=== PATIENT | male | born 1990 | race Caucasian/White ===

== ENCOUNTER 2018-03-28 21:12 | Emergency (ER) | payer OTHER ==
--- NOTE | 2018-03-28 21:35 | ED.PDOC ---
History of Present Illness - General Chief Complaint: Lower Extremity Injury Stated Complaint: bite to ankle Time Seen by Provider: 03/28/18 21:28 Source: patient - History of Present Illness Initial Comments: HE WAS IN [facility] IN SHALLOW SNOW AND FELT A BITE ON THE LEFT LATERAL ANKLE AREA. THIS WAS ABOUT 1:30 HOURS AGO. EN ROUTE HE HAD PROBLEMS GETTING HERE AND THEN ONE TIRE HAD A BLOW OUT. WHEN HE ARRIVES HE HAS LIKE AN ABRASION TO THE LEFT LATERAL ANKLE AREA, THERE IS MILD PAIN AND NO SWELLING. Occurred: other - 1HOUR AND THIRTHY MINUTES AGO. Pain - Lower Extremity: mild: Left Ankle Method of Injury: unknown Improving Factors: nothing Worsening Factors: nothing Allergies/Adverse Reactions: Allergies NO KNOWN ALLERGY Allergy (Verified 03/28/18 21:32) Home Medications: Ambulatory Orders NK [NK] 03/28/18 Review of Systems - Review of Systems Constitutional: States: no symptoms reported EENTM: States: no symptoms reported Respiratory: States: no symptoms reported Cardiology: States: no symptoms reported Gastrointestinal/Abdominal: States: no symptoms reported Genitourinary: States: no symptoms reported Musculoskeletal: States: joint pain Skin: States: other - ABRASION TO LATERAL LEFT ANKLE AREA Neurological: States: no symptoms reported Endocrine: States: no symptoms reported Hematologic/Lymphatic: States: no symptoms reported Past Medical History (General) - Patient Medical History Hx Seizures: No Hx Stroke: No Hx Dementia: No - Vaccination History Hx Tetanus, Diphtheria Vaccination: Yes Immunizations Up to Date: Yes - Social History Hx Alcohol Use: No Family Medical History - Family History Father Family History: Unknown Physical Exam - Physical Exam General Appearance: Alert, Well Developed, Well Hydrated, Well Nourished Eyes, Ears, Nose, Throat: PERRL/EOMI, normal ENT inspection Neck: non-tender, full range of motion Cardiovascular/Respiratory: regular rate, rhythm, normal peripheral pulses, no JVD, normal breath sounds, no respiratory distress Gastrointestinal/Abdominal: non-tender Back: normal inspection Thigh/Hip: normal inspection Leg: normal inspection Knee: normal inspection Ankle: other - SMALL ABRASION TO THE LEFT LATERAL ANKLE Progress - Results/Orders Results/Orders: REASSESSED: NO EDEMA, MINIMAL PAIN, NO ECCHYMOSIS AND THE LAB IS ALL UNREMARKABLE. WILL DC HOME. Departure - Departure Clinical Impression: Abrasion foot/toe Time of Disposition: 22:38 Disposition: Discharge to Home or Self Care Condition: Excellent Departure Forms: ED Discharge - Pt. Copy, Patient Portal Self Enrollment Instructions: DI for Leg Pain Home Medications: Ambulatory Orders NK [NK] 03/28/18
[2018-03-28 22:30] VITALS: BP 129/66; TEMP 98.2; O2SAT 99
== END 2018-03-28 22:46 | disposition home or self-care (01) ==
LOC: ER 21:12
DX: S90.512A Abrasion, left ankle, initial encounter (principal); Y92.828 Other wilderness area as the place of occurrence of the external cause; X58.XXXA Exposure to other specified factors, initial encounter